=== PATIENT | male | born 2000 | race Caucasian/White ===

== ENCOUNTER 2019-06-01 23:45 | Inpatient (IN) | payer MEDICAID, OTHER ==
[~2019-06-01] VITALS: Ht 180.3 cm; Wt 93.0 kg
[2019-06-02] VITALS: BP 116/60
[2019-06-02 01:56] LABS: BASOPHILS % 0.1 % (0.0-2.0); EOSINOPHILS % 0.2 % (0.0-5.0); HEMATOCRIT. 47.1 % (42.0-52.0); HEMOGLOBIN. 15.8 g/dL (14.0-18.0); MEAN CORPUSCULAR HEMOGLOBIN 28.3 pg (28.0-32.0); MEAN CORPUSCULAR VOLUME 84.1 fL (80.0-94.0); MEAN PLATELET VOLUME 7.6 fl (7.4-10.4); MONOCYTES % 5.6 % (2.0-8.0); NEUTROPHILS % 84.1 % (40.0-76.0); PLATELET 305 x1000/uL (130-400); RED CELL DISTRIBUTION WIDTH 12.9 % (11.6-14.6)
[2019-06-02 01:58] LABS: CHLORIDE 105 mEq/L (98-107)
[2019-06-02 02:00] LABS: ETHANOL BLOOD < 10 mg/dL
[2019-06-02] MEDS ORDERED: ASPIRIN 81MG TABLET PO NR (02:30)
[2019-06-02 03:13] LABS: CLARITY URINE CLEAR (CLEAR); COLOR URINE YELLOW (YELLOW); KETONES URINE NEGATIVE (NEGATIVE); LEUKOCYTE ESTERASE URINE NEGATIVE (NEGATIVE); NITRITE URINE NEGATIVE (NEGATIVE); OCCULT BLOOD URINE NEGATIVE (NEGATIVE); PROTEIN URINE NEGATIVE (NEGATIVE); SPECIFIC GRAVITY URINE 1.018 (1.005-1.030); UROBILINOGEN URINE 0.2 E.U./dL (0.2-1.0)
[2019-06-02 03:27] LABS: *AMPHETAMINES SCREEN URINE NEGATIVE (NEGATIVE); *BARBITURATES SCREEN URINE NEGATIVE (NEGATIVE); *BENZODIAZEPINES SCREEN URINE NEGATIVE (NEGATIVE); *COCAINE SCREEN URINE NEGATIVE (NEGATIVE)
[2019-06-02 03:28] LABS: CANNABINOID URINE SCREEN PRESUMTIVE POSITIVE (NEGATIVE); METHADONE URINE SCREEN NEGATIVE (NEGATIVE); OPIATES URINE SCREEN NEGATIVE (NEGATIVE); PHENCYCLIDINE URINE SCREEN NEGATIVE (NEGATIVE)
[2019-06-02 04:32] LABS: CHLORIDE 101 mEq/L (98-107)
[2019-06-02] MEDS ORDERED: ACETAMINOPHEN 325MG TABLET PO PRN ×2 (07:00→10:15)
[2019-06-02] MEDS ORDERED: CLONIDINE 0.1MG TABLET PO PRN (10:15)
[2019-06-02] MEDS ORDERED: HYDROCODONE/ACETAMINOPHEN 10/325MG TABLET PO PRN (10:15)
[2019-06-02] MEDS ORDERED: ONDANSETRON HCL 4MG/2ML INJ IV PRN (10:15)
[2019-06-02] MEDS ORDERED: LORAZEPAM 2MG/ML CPJ IV PRN (10:15)
[2019-06-02] MEDS ORDERED: DIPHENHYDRAMINE 50MG/ML VIAL IV PRN (10:15)
[2019-06-02] MEDS ORDERED: DOCUSATE SODIUM 100MG CAPSULE PO PRN (10:15)
[2019-06-02] MEDS ORDERED: MORPHINE SULFATE 2 MG/ML CPJ (NOT FOR IM USE) IV PRN (10:15)
[2019-06-02] MEDS ORDERED: IPRATROPIUM/ALBUTEROL 0.5-3(2.5)MG/3ML NEB HHN PRN (10:15)
[2019-06-02] MEDS ORDERED: HYDRALAZINE 20MG/ML VIAL IV PRN (10:15)
[2019-06-02] MEDS ORDERED: MAGNESIUM/ALUMINUM HYDROXIDE/SIMETHICONE 30ML UDC PO PRN (10:15)
[2019-06-02] MEDS ORDERED: GUAIFENESIN 200MG/10ML SUGAR FREE UDC PO PRN (10:15)
[2019-06-02] MEDS ORDERED: ENOXAPARIN 40MG/0.4ML SYR SUBCUT SCH (11:30)
[2019-06-02 13:00] VITALS: BP 128/52
[2019-06-02] MEDS: SODIUM CHLORIDE 0.9% INJ 3ML FLUSH IVF SCH ×2 (14:00→21:46)
[2019-06-02 15:46] LABS: CREATINE KINASE 69 IU/L (39-308)
[2019-06-02 15:47] LABS: CREATINE KINASE MB FRACTION < 1.0 ng/mL (0.5-3.6)
[2019-06-02 16:10] VITALS: BP 126/68
[2019-06-02 20:00] VITALS: BP 132/52
[2019-06-03] VITALS: BP 116/60
[2019-06-03 00:09] LABS: CREATINE KINASE 66 IU/L (39-308)
[2019-06-03 00:10] LABS: CREATINE KINASE MB FRACTION < 1.0 ng/mL (0.5-3.6)
[2019-06-03 04:00] VITALS: BP 115/47
[2019-06-03] MEDS: SODIUM CHLORIDE 0.9% INJ 3ML FLUSH IVF SCH (06:04)
[2019-06-03 06:08] LABS: BASOPHILS % 0.2 % (0.0-2.0); EOSINOPHILS % 1.6 % (0.0-5.0); HEMATOCRIT. 45.1 % (42.0-52.0); LYMPHOCYTES % 42.4 % (20.0-50.0); MEAN CORPUSCULAR HEMOGLOBIN 28.2 pg (28.0-32.0); MEAN CORPUSCULAR VOLUME 84.6 fL (80.0-94.0); MEAN PLATELET VOLUME 8.2 fl (7.4-10.4); MONOCYTES % 8.8 % (2.0-8.0); PLATELET 283 x1000/uL (130-400); RED BLOOD CELL COUNT 5.33 mill/uL (4.7-6.1); RED CELL DISTRIBUTION WIDTH 12.9 % (11.6-14.6)
[2019-06-03 06:23] LABS: CHLORIDE 107 mEq/L (98-107)
[2019-06-03 08:00] VITALS: BP 117/61
[2019-06-03 10:25] VITALS: BP 117/61
== END 2019-06-03 11:56 | disposition home or self-care (01) | DRG 207 ==
LOC: ER 23:45 → 7WST 06-02 06:56 → ENRESERV 06-02 11:47
PROVIDERS: ADMIT Internal Medicine; ATTEND Internal Medicine
DX: R00.2 Palpitations (principal); R65.10 Systemic inflammatory response syndrome (SIRS) of non-infectious origin without acute organ dysfunction; R53.1 Weakness; D72.829 Elevated white blood cell count, unspecified; F12.90 Cannabis use, unspecified, uncomplicated
CPT/HCPCS: 36415; 71045; 80048; 80053; 80305; 80320; 81003; 82550; 82553; 83880; 84484; 85025; 87804; 93005; 93970; 99285; J1650; G0480